=== PATIENT | male | born 1990 | race Caucasian/White ===

== ENCOUNTER 2019-08-01 21:21 | Emergency (ER) | payer OTHER, SELFPAY ==
--- NOTE | 2019-08-01 22:24 | ER ---
Nurse's Notes [facility] Name: David Borrego Jr Age: 29 yrs Sex: Male : 1990 Arrival Date: 08/01/2019 Time: 21:25 Bed 11 Private MD: Diagnosis: Unspecified otitis externa, left ear Presentation: 08/01 21:26 Presenting complaint: Patient states: pain and fluids coming out of ear around 1800 dm5 today but initially started about 2 days ago, Left ear is ringing and difficulty hear. Pain goes down into jaw. Transition of care: patient was not received from another setting of care. Onset of symptoms was July 30, 2019. Risk Assessment: Do you want to hurt yourself or someone else? Patient reports no desire to harm self or others. Note dried wax was in ear and tried to get it out and it has hurt since. Care prior to arrival: None. 21:26 Method Of Arrival: Ambulatory dm5 21:26 Acuity: FRAN 3 dm5 21:31 Initial Sepsis Screen: Does the patient meet any 2 criteria? HR > 90 bpm. No. Patient's dm5 initial sepsis screen is negative. Does the patient have a suspected source of infection? Yes: Other: ear pain and drainage. Triage Assessment: 21:30 General: Appears in no apparent distress. uncomfortable, Behavior is cooperative. Pain: dm5 Complains of pain in left ear Pain currently is 0 out of 10 on a pain scale. at worst was 20 out of 10 on a pain scale. Pain began 2-3 days ago. Alleviated by nothing. Aggravated by repositioning. EENT: Reports pain in left ear ringing in left ear. Historical: - Allergies: 21:29 No Known Allergies; dm5 - Home Meds: 21:29 None [Active]; dm5 - PMHx: 21:29 None; dm5 - PSHx: 21:29 None; dm5 - Immunization history:: Adult Immunizations unknown. - Social history:: Smoking status: unknown. - Ebola Screening: : No symptoms or risks identified at this time. Screenin:19 Abuse screen: Denies threats or abuse. Nutritional screening: No deficits noted. bb Tuberculosis screening: No symptoms or risk factors identified. Fall Risk None identified. Assessment: 22:19 General: Appears uncomfortable, Behavior is calm, cooperative. Pain: Complains of pain bb in left ear. Neuro: Level of Consciousness is awake, alert, obeys commands, Oriented to person, place, time, situation. Cardiovascular: No deficits noted. Respiratory: Respiratory effort is even, unlabored, Respiratory pattern is regular. GI: No signs and/or symptoms were reported involving the gastrointestinal system. EENT: Ear canal w/ drainage noted from left ear Reports pain in left ear. Derm: Skin is pink, warm \T\ dry. 22:32 Reassessment: pt verbalized understanding of and agrees to plan of care discharge bb instructions given pt ambulated with steady gait to exit accompanied by family. Vital Signs: 21:29 BP 109 / 77; Pulse 113; Resp 18; Temp 98(TE); Pulse Ox 100% on R/A; Weight 70.31 kg; dm5 Height 6 ft. 0 in. (182.88 cm); Pain 0/10; 21:29 Body Mass Index 21.02 (70.31 kg, 182.88 cm) dm5 ED Course: 21:25 Patient arrived in ED. ds1 21:29 Triage completed. dm5 21:29 Arm band placed on. dm5 21:36 Aviva Escobar F[facility]-C is [facility]. kb 21:36 Alexi Collins MD is Attending Physician. kb 22:19 Filomena Snow, RN is Primary Nurse. bb 22:19 Patient has correct armband on for positive identification. Call light in reach. Adult bb w/ patient. 22:33 No provider procedures requiring assistance completed. Patient did not have IV access bb during this emergency room visit. Administered Medications: No medications were administered Outcome: 22:22 Discharge ordered by . kb 22:33 Discharged to home ambulatory, with family. bb 22:33 Condition: stable 22:33 Discharge instructions given to patient, Instructed on discharge instructions, follow up and referral plans. medication usage, Demonstrated understanding of instructions, follow-up care, medications, Prescriptions given X 1. 22:34 Patient left the ED. bb Signatures: Aviva Escobar FNP-C FNP-Ckb Markwardt, Deana, RN RN dm5 Jenny Curry ds1 Filomena Snow, AAKASH RN bb
--- NOTE | 2019-08-01 22:25 | EDPHYS ---
Physician Documentation [facility] Name: David Borrego Jr Age: 29 yrs Sex: Male : 1990 Arrival Date: 08/01/2019 Time: 21:25 Bed 11 Private MD: ED Physician Alexi Collins HPI: 08/01 22:19 This 29 yrs old Male presents to ER via Ambulatory with complaints of Ear kb Pain - Ear Bleeding. 22:19 The patient presents with drainage, that is purulent, that is bloody, pain, tenderness. kb The complaints affect the left ear. Onset: The symptoms/episode began/occurred today. Modifying factors: The symptoms are alleviated by nothing, the symptoms are aggravated by pulling on ears. Associated signs and symptoms: The patient has no apparent associated signs or symptoms. Severity of symptoms: At their worst the symptoms were moderate in the emergency department the symptoms are unchanged. The patient has not experienced similar symptoms in the past. The patient has not recently seen a physician. Historical: - Allergies: 21:29 No Known Allergies; dm5 - Home Meds: 21:29 None [Active]; dm5 - PMHx: 21:29 None; dm5 - PSHx: 21:29 None; dm5 - Immunization history:: Adult Immunizations unknown. - Social history:: Smoking status: unknown. - Ebola Screening: : No symptoms or risks identified at this time. ROS: 22:21 Constitutional: Negative for fever, chills, and weight loss, Neck: Negative for injury, kb pain, and swelling, Cardiovascular: Negative for chest pain, palpitations, and edema, Respiratory: Negative for shortness of breath, cough, wheezing, and pleuritic chest pain, Abdomen/GI: Negative for abdominal pain, nausea, vomiting, diarrhea, and constipation, MS/Extremity: Negative for injury and deformity, Skin: Negative for injury, rash, and discoloration, Neuro: Negative for headache, weakness, numbness, tingling, and seizure. 22:21 ENT: Positive for drainage from ear(s), ear pain. Exam: 22:21 Constitutional: This is a well developed, well nourished patient who is awake, alert, kb and in no acute distress. Head/Face: Normocephalic, atraumatic. Neck: Trachea midline, no thyromegaly or masses palpated, and no cervical lymphadenopathy. Supple, full range of motion without nuchal rigidity, or vertebral point tenderness. No Meningismus. Chest/axilla: Normal chest wall appearance and motion. Nontender with no deformity. No lesions are appreciated. Cardiovascular: Regular rate and rhythm with a normal S1 and S2. No gallops, murmurs, or rubs. Normal PMI, no JVD. No pulse deficits. Respiratory: Lungs have equal breath sounds bilaterally, clear to auscultation and percussion. No rales, rhonchi or wheezes noted. No increased work of breathing, no retractions or nasal flaring. Abdomen/GI: Soft, non-tender, with normal bowel sounds. No distension or tympany. No guarding or rebound. No evidence of tenderness throughout. Skin: Warm, dry with normal turgor. Normal color with no rashes, no lesions, and no evidence of cellulitis. MS/ Extremity: Pulses equal, no cyanosis. Neurovascular intact. Full, normal range of motion. Neuro: Awake and alert, GCS 15, oriented to person, place, time, and situation. Cranial nerves II-XII grossly intact. Motor strength 5/5 in all extremities. Sensory grossly intact. Cerebellar exam normal. Normal gait. 22:21 ENT: External ear(s): pain with movement, Ear canal(s): erythema, that is moderate, of the left canal, purulent discharge, that is moderate, in the left canal, swelling, that is moderate, of the left canal, TM's: not visable, because of discharge, Examination of the other ear shows no obvious abnormality. Vital Signs: 21:29 BP 109 / 77; Pulse 113; Resp 18; Temp 98(TE); Pulse Ox 100% on R/A; Weight 70.31 kg; dm5 Height 6 ft. 0 in. (182.88 cm); Pain 0/10; 21:29 Body Mass Index 21.02 (70.31 kg, 182.88 cm) dm5 MDM: 22:07 Patient medically screened. kb 22:21 Data reviewed: vital signs, nurses notes. Data interpreted: Pulse oximetry: on room air kb is 100 %. Interpretation: normal. Counseling: I had a detailed discussion with the patient and/or guardian regarding: the historical points, exam findings, and any diagnostic results supporting the discharge/admit diagnosis, the need for outpatient follow up, a family practitioner, to return to the emergency department if symptoms worsen or persist or if there are any questions or concerns that arise at home. Administered Medications: No medications were administered Disposition: 08/02 06:59 Co-signature as Attending Physician, Alexi Collins MD I agree with the assessment and bong plan of care. Disposition: 08/01/19 22:22 Discharged to Home. Impression: Unspecified otitis externa, left ear. - Condition is Stable. - Discharge Instructions: Otitis Externa, [id number], Ear Drops, Adult, [id number]. - Prescriptions for Cortisporin 3.5- 10,000-1 mg/mL-unit/mL-% Otic solution - instill 4 drop by OTIC route 4 times per day for 7 days; 1 bottle. - Medication Reconciliation Form, Thank You Letter, Antibiotic Education, Prescription Opioid Use, Work release form form. - Follow up: Emergency Department; When: As needed; Reason: Worsening of condition. Follow up: Private Physician; When: 2 - 3 days; Reason: Recheck today's complaints, Continuance of care, Re-evaluation by your physician. Signatures: Aviva Escobar, ROSALEE-C ROSALEE-Jazmyn Gomez, RN RN dmAlexi Adair MD MD cha Ballard, Brenda, RN RN bb Corrections: (The following items were deleted from the chart) 08/01 22:34 22:22 08/01/2019 22:22 Discharged to Home. Impression: Unspecified otitis externa, left bb ear. Condition is Stable. Forms are Medication Reconciliation Form, Thank You Letter, Antibiotic Education, Prescription Opioid Use. Follow up: Emergency Department; When: As needed; Reason: Worsening of condition. Follow up: Private Physician; When: 2 - 3 days; Reason: Recheck today's complaints, Continuance of care, Re-evaluation by your physician. kb
[2019-08-01 22:55] VITALS: BP 109/77; TEMP 98; O2SAT 100
== END 2019-08-01 22:34 | disposition home or self-care (01) ==
LOC: ER 21:21
DX: H60.92 Unspecified otitis externa, left ear (principal)
CPT/HCPCS: 99282

== ENCOUNTER 2023-02-27 14:22 | Emergency (ER) | payer SELFPAY ==
[2023-02-27 17:18] LABS: Absolute Lymphocytes (CBC) 1.2 K/uL (0.7-4.9); Hematocrit 33.7 % (39.6-49.0); MCV 73.1 fL (80-100); MPV 7.4 fL (7.6-11.3); RBC Red Blood Cell Count 4.61 M/uL (4.33-5.43)
[2023-02-27 17:23] LABS: Albumin 4.3 g/dL (3.4-5.0); Bilirubin Total 0.4 mg/dL (0.2-1.0); Potassium 4.5 mEq/L (3.5-5.1); Protein, Total 8.9 g/dL (6.4-8.2)
--- NOTE | 2023-02-27 17:37 | RAD REPORT ---
EXAM DESCRIPTION: CT - Abdomen Pelvis W Contrast - 02/27/2023 5:19 pm CLINICAL HISTORY: Abdominal pain COMPARISON: none. TECHNIQUE: Computed axial tomography of the abdomen pelvis was obtained. 100 cc Isovue-300 was admin istered intravenously. Oral contrast was not requested which limits evaluation of bowel and appendix All CT scans are performed using dose optimization technique as appropriate and may include automated exposure control or mA/KV adjustment according to patient size. FINDINGS: Several tiny nonobstructing right renal calculi. Left kidney unremarkable The liver, spleen, pancreas adrenals normal There is no evidence of diverticulitis. No ascites Small hiatal hernia IMPRESSION: Tiny nonobstructing right renal calculi
[2023-02-27 17:58] LABS: Blood Morphology Comment NOT SEEN (NOT SEEN); Platelet Estimate INCR; White Blood Cell Scan OK (OK)
--- NOTE | 2023-02-27 18:01 | RAD REPORT ---
EXAM DESCRIPTION: US - Abdomen Exam Limited - 02/27/2023 5:51 pm CLINICAL HISTORY: Abdominal pain. COMPARISON: None. FINDINGS: The gallbladder wall is not thickened. A gallstone is not seen. The biliary tree is normal caliber. IMPRESSION: Unremarkable gallbladder ultrasound.
--- NOTE | 2023-02-27 18:08 | EDPHYS ---
Physician Documentation [facility] Name: David Borrego Jr Age: 32 yrs Sex: Male : 1990 Arrival Date: 02/27/2023 Time: 14:22 Bed 2 Private MD: ED Physician Jordan Del Rosario HPI: 02/27 17:07 This 32 yrs old Male presents to ER via Ambulatory with complaints of Abdominal Pain, kb Dizziness, Shortness Of Breath, Vomiting, Shaking. 17:07 The patient presents with abdominal pain in the upper abdomen. Onset: The kb symptoms/episode began/occurred 2 month(s) ago, and became worse. The symptoms do not radiate. Associated signs and symptoms: Pertinent positives: nausea, vomiting, and diarrhea, shortness of breath. The symptoms are described as constant. Modifying factors: The symptoms are alleviated by nothing, the symptoms are aggravated by movement, pressure. Severity of pain: At its worst the pain was moderate in the emergency department the pain is unchanged. The patient has not experienced similar symptoms in the past. The patient has not recently seen a physician. Pt reports mid abd pain that started a couple of months ago, but was intermittent and only with certain movements. Now pain is constant and causes him to lose his breath. . Historical: - Allergies: 14:48 No Known Allergies; mb9 - Home Meds: 14:48 None [Active]; mb9 - PMHx: 14:48 Kidney infection; mb9 - PSHx: 14:48 None; mb9 - Immunization history:: Adult Immunizations up to date. - Social history:: Smoking status: Patient reports the use of cigarette tobacco products, denies chronic smoking, but will smoke occasionally. ROS: 17:07 Constitutional: Negative for fever, chills, and weight loss. kb 17:07 Abdomen/GI: Positive for abdominal pain, nausea, vomiting, and diarrhea. 17:07 All other systems are negative. Exam: 17:07 Constitutional: This is a well developed, well nourished patient who is awake, alert, kb and in no acute distress. Head/Face: Normocephalic, atraumatic. ENT: Moist Mucous membranes Cardiovascular: Regular rate and rhythm with a normal S1 and S2. No gallops, murmurs, or rubs. No pulse deficits. Respiratory: Respirations even and unlabored. No increased work of breathing. Talking in full sentences Skin: Warm, dry with normal turgor. Normal color. MS/ Extremity: Pulses equal, no cyanosis. Neurovascular intact. Full, normal range of motion. Neuro: Awake and alert, GCS 15, oriented to person, place, time, and situation. Moves all extremities. Normal gait. 17:07 Abdomen/GI: Inspection: abdomen appears normal, Bowel sounds: normal, Palpation: soft, in all quadrants, moderate abdominal tenderness, in the left lower quadrant. Vital Signs: 14:45 BP 156 / 93; Pulse 91; Resp 18; Temp 98.2; Pulse Ox 100% ; Weight 79.38 kg; Height 6 mb9 ft. 2 in. ; Pain 10/10; 18:04 BP 148 / 82; Pulse 84; Resp 18; Pulse Ox 100% ; ko1 18:13 BP 132 / 79; Pulse 74; Resp 16; Pulse Ox 100% ; bp 18:51 BP 139 / 86; Pulse 72; Resp 16; Pulse Ox 100% ; bp 14:45 Body Mass Index 22.47 (79.38 kg, 187.96 cm) mb9 14:45 Pain Scale: Adult mb9 MDM: 14:52 Patient medically screened. kb 17:09 Differential diagnosis: cholecystitis, Cholelithiasis, diverticulitis, gastritis, kb gastroesophageal reflux disease, non-specific abd pain. Data reviewed: vital signs, nurses notes. 18:07 Counseling: I had a detailed discussion with the patient and/or guardian regarding: the kb historical points, exam findings, and any diagnostic results supporting the discharge/admit diagnosis, lab results, radiology results, the need for outpatient follow up, a family practitioner, a senior solutions architect, to return to the emergency department if symptoms worsen or persist or if there are any questions or concerns that arise at home. 02/27 14:52 Order name: CBC with Diff; Complete Time: 17:58 kb 02/27 14:52 Order name: CMP; Complete Time: 17:26 kb 02/27 14:52 Order name: Lipase; Complete Time: 17:26 kb 02/27 17:25 Order name: CBC Smear Scan; Complete Time: 17:58 EDMS 02/27 14:52 Order name: CT Abd/Pelvis - IV Contrast Only; Complete Time: 17:38 kb 02/27 17:38 Order name: US Abdomen Limited; Complete Time: 18:07 kb 02/27 14:52 Order name: IV Saline Lock; Complete Time: 16:55 kb 02/27 14:52 Order name: Labs collected and sent; Complete Time: 16:55 kb Administered Medications: 18:06 Drug: NS 0.9% IV 1000 ml Route: IV; Rate: 1 bolus; Site: right antecubital; dd1 18:53 Follow up: IV Status: Completed infusion; IV Intake: 1000ml bp 18:06 Drug: TORadol - Ketorolac IVP 15 mg Route: IVP; Site: right antecubital; dd1 18:53 Follow up: Response: No adverse reaction bp 18:06 Drug: Ondansetron IVP 4 mg Route: IVP; Site: right antecubital; dd1 18:53 Follow up: Response: No adverse reaction bp 18:26 Drug: Pantoprazole IVP 40 mg Route: IVP; Site: right antecubital; ko1 18:53 Follow up: Response: No adverse reaction bp Disposition: 19:17 Co-signature as Attending Physician, Jordan Del Rosario MD I agree with the assessment and kdr plan of care. Disposition Summary: 02/27/23 18:08 Discharge Ordered Location: Home kb Condition: Stable kb Diagnosis - Abdominal pain, Generalized kb Followup: kb - With: Emergency Department - When: As needed - Reason: Worsening of condition Followup: kb - With: Private Physician - When: 2 - 3 days - Reason: Recheck today's complaints, Continuance of care, Re-evaluation by your physician Discharge Instructions: - Discharge Summary Sheet kb - Abdominal Pain, Adult, [id number] kb Forms: - Medication Reconciliation Form kb - Thank You Letter kb - Antibiotic Education kb - Prescription Opioid Use kb - Patient Portal Instructions kb Prescriptions: - Protonix 40 mg Oral Tablet - take 1 tablet by ORAL route once daily; 30 tablet; Refills: 0, Product kb Selection Permitted - Zofran 4 mg Oral Tablet - take 1 tablet by ORAL route every 6 hours As needed; 12 tablet; Refills: 0, kb Product Selection Permitted - dicyclomine 20 mg Oral Tablet - take 1 tablet by ORAL route 4 times per day As needed; 20 tablet; Refills: 0, kb Product Selection Permitted Signatures: Dispatcher [employer] Aviva Blackwood FNP-C FNP-Ckb Jordan Del Rosario MD MD kdr Shana Fuentes RN RN ko1 Juana Gay, RN RN mb9 Mika Carty RN RN dd1 Bruce Perez RN bp Corrections: (The following items were deleted from the chart) 17:09 17:07 Abdomen/GI: Inspection: abdomen appears normal, Bowel sounds: normal, Palpation: kb soft, in all quadrants, mild abdominal tenderness, in all quadrants, kb
--- NOTE | 2023-02-27 18:08 | ER ---
Nurse's Notes [facility] Name: David Borrego Jr Age: 32 yrs Sex: Male : 1990 Arrival Date: 02/27/2023 Time: 14:22 Bed 2 Private MD: Diagnosis: Abdominal pain, Generalized Presentation: 02/27 14:45 Chief complaint: Patient states: "I've been having stomach pain in the middle for a few mb9 months now when I get up and move a certain way. It hurts so bad that it almost knocks me down. I get hot flashes, start sweating, get SOB, have the shakes, and been dizzy. Thursday the pain was so bad I vomited. I started taking pepto for the pain. Today I had black diarrhea.". Coronavirus screen: Vaccine status: Patient reports receiving the 2nd dose of the covid vaccine. Ebola Screen: No symptoms or risks identified at this time. Initial Sepsis Screen: Does the patient meet any 2 criteria? No. Patient's initial sepsis screen is negative. Does the patient have a suspected source of infection? No. Patient's initial sepsis screen is negative. Risk Assessment: Do you want to hurt yourself or someone else? Patient reports no desire to harm self or others. Onset of symptoms was 2022. 14:45 Method Of Arrival: Ambulatory [facility] 14:45 Acuity: FRAN 3 mb9 Triage Assessment: 14:49 General: Appears uncomfortable, Behavior is cooperative. Pain: Complains of pain in mb9 abdomen. Neuro: Benites Agitation-Sedation Scale (RASS): 0 - Alert and Calm Level of Consciousness is awake, alert, obeys commands, Oriented to person, place, time, situation, Appropriate for age. Cardiovascular: Denies chest pain. Respiratory: Reports shortness of breath Airway is patent Respiratory effort is even, unlabored, Respiratory pattern is regular, symmetrical. GI: Abdomen is flat, non-distended, Reports diarrhea, nausea, vomiting. Derm: Skin is intact, Skin is dry, Skin is pale, Skin temperature is warm. Musculoskeletal: Range of motion: intact in all extremities. Historical: - Allergies: 14:48 No Known Allergies; mb9 - Home Meds: 14:48 None [Active]; mb9 - PMHx: 14:48 Kidney infection; mb9 - PSHx: 14:48 None; mb9 - Immunization history:: Adult Immunizations up to date. - Social history:: Smoking status: Patient reports the use of cigarette tobacco products, denies chronic smoking, but will smoke occasionally. Screenin:00 [facility] ED Fall Risk Assessment (Adult) History of falling in the last 3 months, ko1 including since admission No falls in past 3 months (0 pts) Confusion or Disorientation No (0 pts) Intoxicated or Sedated No (0 pts) Impaired Gait No (0 pts) Mobility Assist Device Used No (0 pt) Altered Elimination No (0 pt) Score/Fall Risk Level 0 - 2 = Low Risk Oriented to surroundings, Maintained a safe environment, Educated pt \\T\\ family on fall prevention, incl call for assistance when getting out of bed, Assessed \\T\\ reinforced patient's understanding of fall precautions, Provided non-skid footwear, Hourly rounding (assess needs \\T\\ fall precautionary measures) done. Abuse screen: Denies threats or abuse. Denies injuries from another. Nutritional screening: No deficits noted. Tuberculosis screening: No symptoms or risk factors identified. Assessment: 18:00 Neuro: No deficits noted. Neuro: Reports dizziness. Cardiovascular: No deficits noted. ko1 Cardiovascular: No deficits noted. Respiratory: Reports shortness of breath. GI: Bowel sounds present X 4 quads. Abd is soft and non tender. GI: Reports lower abdominal pain. : No deficits noted. EENT: No deficits noted. EENT: Reports. Derm: No deficits noted. Musculoskeletal: No deficits noted. 18:51 Reassessment: PT DC HOME AMBULATORY WITH FAMILY. bp Vital Signs: 14:45 BP 156 / 93; Pulse 91; Resp 18; Temp 98.2; Pulse Ox 100% ; Weight 79.38 kg; Height 6 mb9 ft. 2 in. ; Pain 10/10; 18:04 BP 148 / 82; Pulse 84; Resp 18; Pulse Ox 100% ; ko1 18:13 BP 132 / 79; Pulse 74; Resp 16; Pulse Ox 100% ; bp 18:51 BP 139 / 86; Pulse 72; Resp 16; Pulse Ox 100% ; bp 14:45 Body Mass Index 22.47 (79.38 kg, 187.96 cm) mb9 14:45 Pain Scale: Adult mb9 ED Course: 14:26 Patient arrived in ED. mg5 14:38 Aviva Escobar FNP-C is [facility]. kb 14:38 Jordan Del Rosario MD is Attending Physician. kb 14:48 Triage completed. mb9 14:48 Arm band placed on. mb9 16:55 CBC with Diff Sent. mb9 16:55 CMP Sent. mb9 16:55 Lipase Sent. mb9 16:55 Inserted saline lock: 20 gauge in left antecubital area, using aseptic technique. mb9 17:21 CT Abd/Pelvis - IV Contrast Only In Process Unspecified. EDMS 17:49 Bruce Perez, RN is Primary Nurse. bp 17:53 US Abdomen Limited In Process Unspecified. EDMS 18:00 Patient has correct armband on for positive identification. Bed in low position. Call ko1 light in reach. Provided Education on: Na. Pulse ox on. NIBP on. Door closed. Noise minimized. Lights dimmed. 18:11 No provider procedures requiring assistance completed. ko1 18:51 IV discontinued, intact, bleeding controlled, No redness/swelling at site. Pressure bp dressing applied. Administered Medications: 18:06 Drug: NS 0.9% IV 1000 ml Route: IV; Rate: 1 bolus; Site: right antecubital; dd1 18:53 Follow up: IV Status: Completed infusion; IV Intake: 1000ml bp 18:06 Drug: TORadol - Ketorolac IVP 15 mg Route: IVP; Site: right antecubital; dd1 18:53 Follow up: Response: No adverse reaction bp 18:06 Drug: Ondansetron IVP 4 mg Route: IVP; Site: right antecubital; dd1 18:53 Follow up: Response: No adverse reaction bp 18:26 Drug: Pantoprazole IVP 40 mg Route: IVP; Site: right antecubital; ko1 18:53 Follow up: Response: No adverse reaction bp Medication: 18:10 VIS not applicable for this client. ko1 Intake: 18:53 IV: 1000ml; Total: 1000ml. bp Outcome: 18:08 Discharge ordered by . kb 18:51 Discharged to home ambulatory, with family. bp 18:51 Condition: stable 18:51 Discharge instructions given to patient, Instructed on discharge instructions, follow up and referral plans. medication usage, Demonstrated understanding of instructions, follow-up care, medications, Prescriptions given X 3. 18:54 Patient left the ED. bp Signatures: Dispatcher [employer] EDMS Aviva Escobar, ROSALEE-C FACE PAINTER-CkBruce Varela, RN RN bp Shana Fuentes, AAKASH RN ko1 Juana Gay RN RN mb9 LingMay mg5 Mika Carty RN RN dd1 Corrections: (The following items were deleted from the chart) 14:51 14:45 Chief complaint: Patient states: "I've been having stomach pain in the middle for mb9 a few months now when I get up and move a certain way. It hurts so bad that it almost knocks me down. I get hot flashes, start sweating, get SOB, have the shakes, and been dizzy. Thursday the pain was so bad I vomited. Today I had black diarrhea." mb9 18:53 18:51 Discharge instructions given to patient, Instructed on discharge instructions, bp follow up and referral plans. Demonstrated understanding of instructions, follow-up care, bp
[2023-02-27] MEDS ORDERED: NA CHLORIDE 0.9% 1,000 ML ONE (18:12)
[2023-02-27] MEDS ORDERED: KETOROLAC 30 MG/ML INJ ONE (18:12)
[2023-02-27] MEDS ORDERED: ONDANSETRON 4 MG/2 ML VIAL ONE (18:12)
[2023-02-27] MEDS ORDERED: PANTOPRAZOLE 40 MG INJ ONE (18:33)
[2023-02-27 19:38] VITALS: TEMP 98.2; O2SAT 100
[2023-02-27 19:43] VITALS: BP 139/86
== END 2023-02-27 18:54 | disposition home or self-care (01) ==
LOC: ER 14:22
DX: R10.84 Generalized abdominal pain (principal); R11.2 Nausea with vomiting, unspecified; F17.210 Nicotine dependence, cigarettes, uncomplicated
CPT/HCPCS: 36415; 74177; 76705; 80053; 83690; 85025; 96361; 96374; 96375; 99284; C9113; J2405; J7030; Q9967